=== PATIENT | male | born 1945 | race Caucasian/White ===

== ENCOUNTER 2022-04-26 20:40 | Emergency (ER) | payer MEDICARE ==
[~2022-04-26] VITALS: Ht 185.4 cm; Wt 81.8 kg
[2022-04-26 21:38] VITALS: BP 169/85
--- NOTE | 2022-04-26 21:51 | NUR ---
Spoke with who states periods of confusion off and on. Dr. Hall advised and states to order head CT due to frequent falls
[2022-04-26 22:26] LABS: APTT 36 SECONDS (22-32)
[2022-04-26 22:34] LABS: ALANINE AMINOTRANSFERASE 54 U/L (12-78); ALBUMIN 3.6 G/DL (3.4-5.0); ALBUMIN/GLOBULIN RATIO 0.8 (1.1-1.5); ALKALINE PHOSPHATASE 200 IU/L (46-116); ANION GAP 15 (8-16); ASPARTATE AMINO TRANSFERASE 56 U/L (10-37); BILIRUBIN,TOTAL 0.4 MG/DL (0.1-1.0); BLOOD UREA NITROGEN 42 MG/DL (7-18); BUN/CREATININE RATIO 15.2 (5.4-32.0); CALCIUM 8.3 MG/DL (8.5-10.1); CHLORIDE 102 MMOL/L (99-107); CREATININE 2.76 MG/DL (0.60-1.10); GLUCOSE 111 MG/DL (70-104); POTASSIUM 4.1 MMOL/L (3.5-5.1); SODIUM 134 MMOL/L (135-145); TOTAL CARBON DIOXIDE 17.3 MMOL/L (24-32); TOTAL PROTEIN 7.9 G/DL (6.4-8.2); eGFR 22 ML/MIN
[2022-04-26 22:44] LABS: BASOPHILS # (AUTO) 0.1 X10'3 (0-0.2); BASOPHILS % (AUTO) 0.8 % (0-1); EOSINOPHILS % (AUTO) 0 % (0-6); HEMATOCRIT 34.4 % (42.0-52.0); HEMOGLOBIN 11.3 g/dl (14.0-17.9); LYMPHOCYTES # (AUTO) 0.5 X10'3 (1.1-4.8); LYMPHOCYTES % (AUTO) 8.2 % (21-51); MEAN CORPUSCULAR HEMOGLOBIN 29.6 PG (27.0-31.0); MEAN CORPUSCULAR HGB CONC 32.9 g/dL (33.0-36.5); MEAN CORPUSCULAR VOLUME 90.2 FL (78-98); MEAN PLATELET VOLUME 7.7 FL (7.4-10.4); MONOCYTES # (AUTO) 1.5 X10'3 (0-0.9); NEUTROPHILS # (AUTO) 4.6 X10'3 (1.8-7.7); PLATELET COUNT 331 X10'3 (140-440); RED BLOOD COUNT 3.82 X10'6 (4.70-6.10); RED CELL DISTRIBUTION WIDTH 13.9 % (11.5-14.5); WHITE BLOOD COUNT 6.7 X10'3 (4.5-11.0)
[2022-04-27 00:23] LABS: CLARITY,URINE CLEAR (Clear); COLOR,URINE YELLOW (Yellow); GLUCOSE, URINE NEGATIVE (Neg); KETONES,URINE NEGATIVE (Neg); LEUKOCYTE ESTERASE ,URINE TRACE (Neg); NITRITES, URINE NEGATIVE (Neg); OCCULT BLOOD,URINE NEGATIVE (Neg); PH,URINE 5.5 (4.8-8.0); PROTEIN,URINE NEGATIVE (Neg); UROBILINOGEN,URINE 0.2 E.U/dL (0.2-1.0)
[2022-04-27 00:25] LABS: UA COLLECTION TYPE CLN CATCH MIDSTREAM
--- NOTE | 2022-04-27 00:29 | NUR ---
Patient refused both covid and flu swab. MD fan
[2022-04-27 00:36] LABS: BACTERIA,URINE NONE SEEN /HPF (Neg); MUCUS STRANDS NONE SEEN /LPF (Neg); SQUAMOUS EPITHELIAL CELL,UR FEW /LPF (FEW); WBC,URINE 0-4 /HPF (0-4)
[2022-04-27 00:37] LABS: RBC,URINE 0-2 /HPF (0-2)
[2022-04-27 00:57] LABS: PLATELET ESTIMATE NORMAL; TOTAL CELLS COUNTED 100
== END 2022-04-27 03:06 | disposition home or self-care (01) ==
LOC: ER 20:40
DX: M54.59 Other low back pain (principal); J04.0 Acute laryngitis; G89.29 Other chronic pain; W19.XXXA Unspecified fall, initial encounter; Y93.89 Activity, other specified; Y92.89 Other specified places as the place of occurrence of the external cause; Y99.8 Other external cause status; R41.0 Disorientation, unspecified
CPT/HCPCS: 36415; 70450; 71045; 80053; 81001; 84484; 85007; 85025; 85610; 85730; 93005; 99285